=== PATIENT | male | born 1935 | race Caucasian/White ===

== ENCOUNTER 2016-12-08 04:39 | Observation (INO) | payer OTHER ==
[~2016-12-08] VITALS: Ht 176.5 cm; Wt 105.3 kg
[~2016-12-08 04:39] MED LIST: ALBUTEROL SULF8.5 GM IH; Diabeta,Micronase PO; Glucophage XR,Fortam PO; NORVASC5 MG PO; PREDNISONE20 MG PO; PROTONIX40 MG PO; Paxil PO; ROBITUSSIN AC,T10 ML PO; THERAGRAN1 TABLET PO; ZESTRIL,PRINIVI10 M1 PO; ZITHROMAX Z-PA250 MG PO; Zocor PO
[2016-12-08 05:57] LABS: TROP-I INTERPRETATION NEGATIVE; TROPONIN-I < 0.01 ng/mL (0.0-0.30)
[2016-12-08 06:08] LABS: HEMATOCRIT 43.5 % (38.0-50.0); MCH 30.5 PG (29.0-34.0); MCHC 33.6 G/DL (30.0-36.0); MCV 90.8 FL (86-99); MEAN PLAT.VOLUME 10.6 uM^3 (9.0-12.4); PLATELET COUNT 268 K/uL (156-360); RBC DIS.WIDTH-CV 13.2 % (11.8-14.6); RBC DIS.WIDTH-SD 43.7 % (39-53); RED BLOOD COUNT 4.79 M/uL (4.00-5.50); WHITE BLOOD COUNT 10.1 K/uL (4.1-10.2)
[2016-12-08 06:42] LABS: CHLORIDE 106 mEq/L (99-109); POTASSIUM 4.2 mEq/L (3.7-5.4); SODIUM 140 mEq/L (136-147)
[2016-12-08 06:44] LABS: GLUCOSE 187 mg/dL (70-99)
[2016-12-08 06:45] LABS: ANION GAP 13 MEQ/L (2-14)
[2016-12-08 06:47] LABS: GFR ESTIMATE (CALCULATED) 44 mL/min/
[2016-12-08 06:48] LABS: UREA NITROGEN (BUN) 22 mg/dL (9-23)
[2016-12-08] MEDS ORDERED: ZESTRIL10 MG PO (09:07)
[2016-12-08] MEDS ORDERED: ZOCOR80 MG PO (09:08)
[2016-12-08] MEDS ORDERED: AMARYL4 MG PO (09:10)
[2016-12-08] MEDS ORDERED: TRULICITY1.5 MG/0.5 SC (09:10)
[2016-12-08] MEDS ORDERED: PAXIL20 MG PO (09:10)
[2016-12-08] MEDS ORDERED: COLACE100 MG PO (09:11)
[2016-12-08 12:41] VITALS: BP 142/98
[2016-12-08 12:49] LABS: HDL CHOLESTEROL 36 MG/DL (Desirable>=40); LDL CHOLESTEROL 60 mg/dL (Desirable<100); NON-HDL CHOLESTEROL 108 mg/dL (Desirable<160); TOTAL CHOLESTEROL 144 mg/dL (Desirable<200); TRIGLYCERIDES 240 MG/DL (Normal: <150)
[2016-12-08 15:20] LABS: TROP-I INTERPRETATION NEGATIVE; TROPONIN-I 0.01 ng/mL (0.0-0.30)
[2016-12-08 16:13] VITALS: BP 174/80
[2016-12-08 17:33] LABS: POINT-OF-CARE METER ID UU13113831
[2016-12-08 17:55] VITALS: BP 160/90
[2016-12-08 19:45] VITALS: BP 168/80
[2016-12-08 21:27] LABS: TROP-I INTERPRETATION NEGATIVE; TROPONIN-I 0.01 ng/mL (0.0-0.30)
[2016-12-09 00:40] VITALS: BP 149/80
[2016-12-09 04:45] VITALS: BP 142/82
[2016-12-09 08:55] LABS: POINT-OF-CARE METER ID UU13113831
[2016-12-09 09:45] VITALS: BP 158/83
[2016-12-09] MEDS ORDERED: LOPRESSOR25 MG PO (11:19)
== END 2016-12-09 12:00 | disposition home or self-care (01) ==
LOC: EME 04:39 → EDOF 08:38 → 5WEST 08:38 → EDOF 08:38 → 5WEST 12:01
PROVIDERS: Hospitalist; Internal Medicine
DX: R07.9 Chest pain, unspecified (principal); E11.9 Type 2 diabetes mellitus without complications; E78.4 Other hyperlipidemia; K21.9 Gastro-esophageal reflux disease without esophagitis; Z87.891 Personal history of nicotine dependence; N18.2 Chronic kidney disease, stage 2 (mild); I12.9 Hypertensive chronic kidney disease with stage 1 through stage 4 chronic kidney disease, or unspecified chronic kidney disease; I16.0 Hypertensive urgency; R06.02 Shortness of breath
CPT/HCPCS: 71020; 80048; 80061; 82948; 84484; 85027; 93005; 93306; 99281; 99285; G0378; J1644; J1815